=== PATIENT | male | born 1960 | race Caucasian/White ===

== ENCOUNTER 2018-02-28 12:46 | Emergency (ER) | payer OTHER ==
[~2018-02-28] VITALS: Ht 180.3 cm; Wt 79.4 kg
[~2018-02-28 12:46] MED LIST: ATIVAN0.5 M1 PO; AUGMENTIN 875-1 EACH PO; CLARITIN10 M1 PO; IBUPROFEN800 M1 PO
[2018-02-28 12:59] VITALS: BP 164/105
--- NOTE | 2018-02-28 15:06 | RADIOLOGY REPORT ---
EXAMINATION: XR KNEE, RIGHT CLINICAL INFORMATION: Right knee pain x3 weeks. No known injury. COMPARISON: None TECHNIQUE: Four views of the right knee. FINDINGS: There is no visible acute fracture, dislocation or subluxation. There is inferior patellar enthesophytes noted. There is mild suprapatellar joint effusion. The soft tissues are normal. IMPRESSION: No visible acute fracture, dislocation or soft tissue abnormality seen. Small inferior patellar enthesophytes and mild suprapatellar joint effusion noted.
--- NOTE | 2018-02-28 15:44 | ED GENERAL ADULT ---
History of Present Illness General Chief Complaint: Lower Extremity Problems Stated Complaint: R KNEE PAIN Source: patient Exam Limitations: no limitations Vital Signs & Intake/Output Vital Signs & Intake/Output Vital Signs Date Time Temp Pulse Resp B/P B/P Pulse O2 O2 Flow FiO2 Mean Ox Delivery Rate 02/28 1259 97.2 110 18 164/105 95 Room Air Allergies Coded Allergies: NO KNOWN ALLERGIES (01/19/12) Reconcile Medications Loratadine (Claritin) 10 MG TABLET 1 TAB PO DAILY PRN allergies/runny nose Lorazepam (Ativan) 0.5 MG TABLET 1 TAB PO BIDP PRN anxiety ten... [id number] Meloxicam (Mobic) 15 MG TABLET 1 TAB PO DAILY PAIN Prednisone 20 MG TABLET 1 TAB PO BID ARTHRITIS Triage Note: C/O PAIN IN R KNEE X A FEW WEEKS, DENIES FALL OR INJURY, DECLINES PAIN MEDS IN TRIAGE. PMH: ARTHRITIS. Triage Nurses Notes Reviewed? yes Onset: Gradual Duration: week(s): Timing: recent history HPI: 02/28/18 57-year-old male presents to the emergency department complaining of right knee pain. He says he actually has generalized arthralgias. He has a history of psoriatic arthritis. He denies any fever or trauma. The onset of the symptoms have been gradual, the duration has been weeks, the severity is significant as his symptoms required him to come to the emergency department for care. Past History Travel History Traveled to [place] past 21 day No Medical History Any Pertinent Medical History? see below for history Neurological: NONE EENT: NONE Cardiovascular: NONE Respiratory: NONE Gastrointestinal: NONE Hepatic: NONE Renal: NONE Musculoskeletal: arthritis Psychiatric: anxiety Endocrine: NONE Blood Disorders: NONE Cancer(s): NONE CHILDREN'S LIBRARIAN/Reproductive: NONE Surgical History Surgical History: N Psychosocial History Who do you live with Patient/Self What is your primary language Yakut Tobacco Use: Quit >30 days ago ETOH Use: denies use Family History Hx Contributory? No Review of Systems Review of Systems Constitutional: Denies: fever. EENTM: Denies: visual changes. Respiratory: Denies: short of breath. Cardiovascular: Denies: chest pain. GI: Denies: abdominal pain. Genitourinary: Reports: no symptoms. Musculoskeletal: Reports: see HPI. Skin: Reports: rash (psoriasis). Neurological/Psychological: Reports: no symptoms. Hematologic/Endocrine: Reports: no symptoms. Immunologic/Allergic: Reports: no symptoms. Physical Exam Physical Exam General Appearance: alert, awake, anxious Head: atraumatic, normal appearance Eyes: Bilateral: normal appearance, PERRL, EOMI. Ears, Nose, Throat: normal pharynx, normal ENT inspection Neck: normal inspection, supple Respiratory: normal breath sounds, chest non-tender, no respiratory distress Cardiovascular: regular rate/rhythm Peripheral Pulses: 4+ tibialis posterior (R) Gastrointestinal: non-tender Back: normal range of motion Extremities: tenderness Neurologic/Psych: no motor/sensory deficits, awake, alert, oriented x 3 Skin: rash (psoriatic plaques) Comments: On physical exam he has mild tenderness to the right knee. He says his shoulders and the left knee hurts at times to. No fever. He does have psoriatic plaques on his knees and on his chest. He says he's been told he has a history of psoriatic arthritis. Core Measures ACS in differential dx? No CVA/TIA Diagnosis: No Sepsis Present: No Sepsis Focused Exam Completed? No Progress Differential Diagnoses I considered the following diagnoses in my evaluation of the patient: [Septic arthritis, arthritis, gout, psoriatic arthritis, osteoarthritis] Plan of Care: Current Medications Sig/[facility] Start time Last Medication Dose Stop Time Status Admin Ketorolac 60 MG ONCE ONE 02/28 1545 UNVr Tromethamine 02/28 1546 (Toradol) Initial ED EKG: none Departure Departure Disposition: HOME OR SELF CARE Condition: Stable Clinical Impression Primary Impression: Arthritis Referrals: Ekaterina Hansen APRN (PCP/Family) Departure Forms: Customer Survey General Discharge Information Prescriptions: Current Visit Scripts Prednisone 1 TAB PO BID #10 TAB Meloxicam (Mobic) 1 TAB PO DAILY #10 TAB Comments PATIENT: L[facility] [place] PRESENT AGE: 57 PATIENT ACCOUNT NO: [id number] : 60 LOCATION: [facility] ORDERING PHYSICIAN: Oleg Pierce DO (TBS) SERVICE DATE: 02/28/18 EXAM TYPE: RAD - XRY-KNEE, RIGHT EXAMINATION: XR KNEE, RIGHT CLINICAL INFORMATION: Right knee pain x3 weeks. No known injury. COMPARISON: None TECHNIQUE: Four views of the right knee. FINDINGS: There is no visible acute fracture, dislocation or subluxation. There is inferior patellar enthesophytes noted. There is mild suprapatellar joint effusion. The soft tissues are normal. IMPRESSION: No visible acute fracture, dislocation or soft tissue abnormality seen. Small inferior patellar enthesophytes and mild suprapatellar joint effusion noted. DICTATED BY: Felix Padgett MD DATE/TIME DICTATED:02/28/181500 IRRIGATING PUMP OPERATOR:FLOWER DATE/TIME TRANSCRIBED:02/28/181500 CONFIDENTIAL, DO NOT COPY WITHOUT APPROPRIATE AUTHORIZATION. <Electronically signed in Other Vendor System> SIGNED BY: Felix Padgett MD 02/28/181505 I called [facility] and left them a message to remind him to have his blood pressure rechecked when he followed up with his physician this week. He was treated with Mobic and prednisone. Critical Care Note Critical Care Note Critical Care Time: non-applicable
[2018-02-28] MEDS ORDERED: MOBIC15 M1 PO (15:47)
[2018-02-28] MEDS ORDERED: PREDNISONE20 M1 PO (15:47)
== END 2018-02-28 15:50 ==
LOC: ERH 12:46
DX: M17.11 Unilateral primary osteoarthritis, right knee (principal)
CPT/HCPCS: 73560-RT; 96372; J1885